=== PATIENT | female | born 1980 | race African-American/Black ===

== ENCOUNTER 2016-11-20 11:59 | Emergency (ER) | payer OTHER ==
[~2016-11-20] VITALS: Ht 154.9 cm; Wt 56.7 kg
--- NOTE | ~2016-11-20 | EKG ---
[address] [address] ELECTROCARDIOGRAM REPORT Name: AVIVA HICKS APOLLO Room #: [facility].#: [id number] Admission: Attend Phys: Discharge: Date of : 80 Report #: [id number] THIS REPORT FOR: //name// [facility] ED Test Date: 2016-11-20 Test Time: 12:15:13 Pat Name: AVIVA HICKS Department: Room: Gender: F [employer] Professor: MARY : 1980 Requested By: Tiffany Cross Order Number: [id number] MD: Edgar Forte Measurements Intervals [place] Rate: 103 P: 30 [place]: 136 QRS: 3 QRSD: 80 T: 3 QT: 327 QTc: 428 Interpretive Statements Sinus tachycardia Left ventricular hypertrophy No previous ECG available for comparison Electronically Signed On 11-20-2016 12:54:02 [employer] MACHINE OPERATOR by Edgar Forte [email or web address] <ELECTRONICALLY SIGNED> By: Edgar Forte MD, [facility] 11/20/16 1254 1215 1215 Edgar Forte MD, FACC /EPI
[~2016-11-20 11:59] MED LIST: ALDOMET250 MG PO; AZITHROMYCIN 2250 MG PO; BUPROPION; FLEXERIL; FLEXERIL PO; HYZAAR 50-12.51 EACH PO; IBUPROFEN 600600 M1 PO; LABETALOL 100100 MG GT; LISINOPRIL-HCT1 EAC1 PO; NAPROSYN500 MG PO; NORCO 5-325 TA1 EACH PO; PEPCID40 MG PO; PHENERGAN 25 MG25 M1 PO; PREDNISONE 5 MG5 M1 PO; PROMETHAZINE HC25 M1; ULTRAM 50MG TAB50 MG PO; ZOFRAN ODT4 MG PO; [UNRECOGNIZED DRUG - OTHER]
[2016-11-20] MEDS ORDERED: NORVASC10 MG PO (12:02)
[2016-11-20 12:26] LABS: URINE BILIRUBIN NEGATIVE (Negative); URINE BLOOD 1+ (Negative); URINE COLOR YELLOW; URINE GLUCOSE-RANDOM* NEGATIVE (Negative); URINE KETONES NEGATIVE (Negative); URINE NITRITE NEGATIVE (Negative); URINE PROTEIN (DIPSTICK) NEGATIVE (Negative); URINE SPECIFIC GRAVITY <= 1.005 (1.003-1.035); URINE UROBILINOGEN 0.2 E.U./dl (0.2-1.0)
[2016-11-20 12:28] LABS: HEMOGLOBIN 13.5 gm/dL (12.0-15.0); MCH 32.1 pg (26.0-34.0); MCHC 35.6 % (28.0-37.0); MCV 90.2 fL (80.0-100.0); PLATELET COUNT 345 thou/uL (150-400); RBC 4.21 mil/uL (4.20-5.00); RDW 13.5 % (10.5-14.5); WBC 3.7 thou/uL (4.0-11.0)
[2016-11-20 12:29] LABS: MANUAL DIFF YES
[2016-11-20 12:30] LABS: SQUAMOUS 0-3 Few /LPF (0-3); URINE WBC None Seen /HPF (0-5)
[2016-11-20 12:31] LABS: BACTERIA None Seen /HPF (None Seen); CASTS None Seen /LPF (None Seen); CRYSTALS None Seen /LPF (None Seen); URINE RBC 0-2 Rare /HPF (0-2)
[2016-11-20 12:34] LABS: CALCIUM 9.8 mg/dL (8.5-10.1); CREATININE 0.7 mg/dL (0.6-1.3)
[2016-11-20 12:39] LABS: ALBUMIN 4.7 g/dL (3.4-5.0); TOTAL BILIRUBIN 0.6 mg/dL (<0.1-1.0); TOTAL PROTEIN 8.9 g/dL (6.4-8.2)
[2016-11-20 12:46] LABS: ABSOLUTE NEUTROPHILS 2.1 thou/uL (1.4-8.2); TOTAL CELL COUNT 100
[2016-11-20 14:05] VITALS: BP 149/83
== END 2016-11-20 14:06 | disposition home or self-care (01) ==
LOC: ER 11:59
PROVIDERS: Nurse Practitioner Family
DX: R51 Headache (principal); R94.5 Abnormal results of liver function studies; E87.6 Hypokalemia; I10 Essential (primary) hypertension; Z88.0 Allergy status to penicillin; Z88.2 Allergy status to sulfonamides; F10.99 Alcohol use, unspecified with unspecified alcohol-induced disorder; F12.90 Cannabis use, unspecified, uncomplicated

== ENCOUNTER 2021-08-13 22:13 | Emergency (ER) | payer OTHER ==
[~2021-08-13] VITALS: Ht 154.9 cm; Wt 56.2 kg
[~2021-08-13 22:13] MED LIST changes: +NORVASC10 MG PO
[2021-08-13] MEDS ORDERED: BUPROPION XL300 MG PO (22:41)
[2021-08-13] MEDS ORDERED: SPIRONOLACTONE25 MG PO (22:42)
[2021-08-13] MEDS ORDERED: FLUTICASONE PRO16 GM NARES (22:42)
[2021-08-13 23:21] LABS: ABSOLUTE NEUTROPHILS 2.4 thou/uL (1.4-8.2); BASOPHILS 0.6 % (0.0-2.0); EOSINOPHILS 0.9 % (0.0-3.0); HEMATOCRIT 39.6 % (37.0-47.0); HEMOGLOBIN 13.4 gm/dL (12.0-15.0); MCH 33.4 pg (26.0-34.0); MCHC 33.7 g/dL (28.0-37.0); MCV 99.2 fL (80.0-100.0); MONOCYTES 6.7 % (1.0-8.0); PLATELET COUNT 225 thou/uL (150-400); POLYS 75.8 % (36.0-66.0); RDW 14.3 % (10.5-14.5); WBC 3.2 thou/uL (4.0-11.0)
[2021-08-13 23:28] LABS: CALCIUM 8.9 mg/dL (8.5-10.1); CREATININE 0.5 mg/dL (0.6-1.0)
[2021-08-13 23:34] LABS: ALBUMIN 4.2 g/dL (3.4-5.0); TOTAL BILIRUBIN 0.7 mg/dL (0.2-1.0); TOTAL PROTEIN 8.5 g/dL (6.4-8.2)
[2021-08-14] MEDS ORDERED: BENTYL 10 MG CA10 M1 PO (00:56)
[2021-08-14] MEDS ORDERED: ZOFRAN ODT4 MG PO (00:56)
[2021-08-14 01:13] VITALS: BP 147/85
== END 2021-08-14 01:13 | disposition home or self-care (01) ==
LOC: ER 22:13
PROVIDERS: Emergency Medicine
DX: K52.9 Noninfective gastroenteritis and colitis, unspecified (principal); I10 Essential (primary) hypertension; F32.9 Major depressive disorder, single episode, unspecified; F17.210 Nicotine dependence, cigarettes, uncomplicated; F12.90 Cannabis use, unspecified, uncomplicated; Z79.899 Other long term (current) drug therapy; Z88.0 Allergy status to penicillin; Z88.2 Allergy status to sulfonamides

== ENCOUNTER 2021-09-24 14:52 | Emergency (ER) | payer OTHER ==
[~2021-09-24] VITALS: Ht 154.9 cm; Wt 56.2 kg
[~2021-09-24 14:52] MED LIST changes: +BENTYL 10 MG CA10 M1 PO; +BUPROPION XL300 MG PO; +FLUTICASONE PRO16 GM NARES; +SPIRONOLACTONE25 MG PO
[2021-09-24] MEDS ORDERED: HYDROCHLOROTHIA25 M1 PO (15:37)
[2021-09-24] MEDS ORDERED: HYDRALAZINE 2525 M1 PO (15:37)
[2021-09-24 16:29] VITALS: BP 163/63
== END 2021-09-24 16:30 ==
LOC: ER 14:52
DX: R09.81 Nasal congestion (principal); Z20.822 Contact with and (suspected) exposure to COVID-19; I10 Essential (primary) hypertension; F32.9 Major depressive disorder, single episode, unspecified; Z79.899 Other long term (current) drug therapy; Z88.0 Allergy status to penicillin; Z88.2 Allergy status to sulfonamides